=== PATIENT | female | born 1990 | race Caucasian/White ===

== ENCOUNTER 2019-09-22 12:04 | Outpatient (CLI) | payer OTHER, SELFPAY ==
--- NOTE | ~2019-09-22 | XR_ITS ---
EXAMINATION: XR lumbar spine 2-3V EXAM DATE: 09/22/2019 12:38 INDICATION: Cervicalgia, low back pain. TECHNIQUE: Lumber spine frontal, lateral, lateral L5-S1 projections for interpretation. There is no prior study for comparison. FINDINGS: 6 lumbar vertebral bodies. The vertebral bodies are aligned in the AP dimension. Neck desiree ntained there is mild lower lumbar facet arthropathy. The spondylolysis. Sacrum, sacroiliac joints, s acral arcuate lines are intact. Paraspinal soft tissue is unremarkable. IMPRESSION: Mild lumbar spondylosis. Reviewed, dictated and finalized at location A. IMPRESSION: Mild lumbar spondylosis.
--- NOTE | ~2019-09-22 | XR_ITS ---
EXAMINATION: XR_CERV2-3V_CR EXAM DATE: 09/22/2019 12:38 INDICATION: Cervical pain. TECHNIQUE: Cervical spine frontal, lateral, lateral swimmers, and open-mouth odontoid projections. C omparison is made to prior examination from 03/31/2016. FINDINGS: There is no evidence of acute cervical fracture. The odontoid process is intact. Pre-dens space is normal. Prevertebral soft tissue is normal. There are no soft tissue abnormalities identi fied. The vertebral bodies are aligned. Vertebral body and disc heights are well-maintained. Th ere is mild cervical facet arthropathy. No appreciable neural foraminal stenosis. Lung apices unremar kable. Small C7 cervical ribs, congenital variant. IMPRESSION: 1. Mild cervical facet arthropathy. 2. Small C7 ribs. Reviewed, dictated and finalized at location A.
[2019-09-22 13:19] LABS: Basophils Percent Auto 0.6 % (0.2-1.2); Eosinophils Absolute Auto 0.3 K/mm3 (0-0.3); Eosinophils Percent Auto 5.5 % (0-4.4); Hematocrit 40.5 % (37.0-47.0); Hemoglobin 13.9 g/dL (12.0-15.0); Immature Granulocyte Absolute 0.01 K/mm3 (0.00-0.031); Immature Granulocyte Percent A 0.2 % (0-0.5); Lymphocytes Absolute Auto 1.24 K/mm3 (0.9-3.2); Lymphocytes Percent Auto 25.1 % (18.3-44.2); Mean Corpuscular HGB Conc 34.3 g/dl (32-36); Mean Corpuscular Hemoglobin 31.4 pg (26-34); Mean Corpuscular Volume 91.6 fl (80-100); Mean Platelet Volume 10.9 fl (7.4-10.4); Monocytes Absolute Auto 0.4 K/mm3 (0.1-0.6); Monocytes Percent Auto 8.9 % (2.6-8.5); Neutrophils Percent Auto 59.7 % (45.5-73.1); Platelet Count Result 245 k/mm3 (150-375); Red Blood Count 4.42 M/mm3 (4.2-5.4); Red Cell Distribution Width 12.4 % (11.5-14.5); White Blood Count 4.9 K/mm3 (4.5-10.0)
[2019-09-22 13:29] LABS: Alanine Aminotransferase 11 U/L (4-35); Albumin Level 4.3 g/dL (3.5-5.1); Alkaline Phosphatase 67 U/L (38-126); Aspartate Amino Transferase 20 U/L (14-36); Bilirubin,Total 0.7 mg/dL (0.2-1.3); Blood Urea Nitrogen 11 mg/dL (7-17); Carbon Dioxide 23 mmol/L (22-30); Chloride 106 mmol/L (98-107); Estimated Glomerular Filt Rate > 60; Glucose 92 mg/dL (65-105); Potassium 3.9 mmol/L (3.4-5.0); Sodium 137 mmol/L (137-145)
[2019-09-22 14:19] LABS: Free T4 Free Thyroxine 1.07 ng/mL (0.78-2.19)
[2019-09-22 14:34] LABS: Folic Acid 14.8 ng/mL (2.76->20)
[2019-09-25 02:30] LABS: Albumin 3.8 g/dL (3.8-4.8); Alpha 1 Globulin 0.2 g/dL (0.2-0.3); Alpha 2 Globulin 0.6 g/dL (0.5-0.9); Beta 1 Globulin 0.4 g/dL (0.4-0.6); Protein, Total 6.2 g/dL (6.1-8.1)
[2019-09-25 13:30] LABS: Vitamin D 1,25 (OH)2 Total 52 pg/mL (18-72); Vitamin D2 1,25 (OH)2 8 pg/mL; Vitamin D3 1,25 (OH)2 44 pg/mL
== END 2019-09-22 12:05 | disposition home or self-care (01) ==
PROVIDERS: PCP Physician Assistant; Visit Provider Psychiatry & Neurology Neurology
DX: M54.2 Cervicalgia (principal); M47.896 Other spondylosis, lumbar region
CPT/HCPCS: 36415; 72040; 72100; 80053; 82607; 82652; 82746; 84155; 84165; 84439; 84443; 85025; 86038

== ENCOUNTER 2019-11-04 10:22 | Outpatient (CLI) | payer OTHER, SELFPAY ==
--- NOTE | 2019-11-04 11:30 | NEURO_ITS ---
Patient Number: [id number] Impression: # Complains of numbness of right upper extremity and at times right lower extremity. # Normal nerve conduction study except evolving left Carpal Tunnel Syndrome. # Normal needle/EMG exam. # Clinical correlation recommended. Nerve Conduction Studies Anti Sensory Summary Table Stim Site NR Peak (ms) P-T Amp (?V) Site1 Site2 Delta-P (ms) Dist (cm) Abdelrahman (m/s) Left Median Anti Sensory (2-3nd Digit) Wrist 2.6 92.8 Wrist 2-3nd Digit 2.6 14.0 54 Wrist 2.7 95.1 Wrist 2-3nd Digit 2.6 14.0 54 Right Median Anti Sensory (2-3nd Digit) Wrist 2.6 92.9 Wrist 2-3nd Digit 2.6 14.0 54 Wrist 2.6 83.6 Wrist 2-3nd Digit 2.6 14.0 54 Left Radial Anti Sensory (Base 1st Digit) Wrist 2.2 23.7 Wrist Base 1st Digit 2.2 0.0 Right Radial Anti Sensory (Base 1st Digit) Wrist 2.4 11.6 Wrist Base 1st Digit 2.4 0.0 Left Sup Fibular Anti Sensory (Ant Lat Mall) 14 cm 3.6 11.5 14 cm Ant Lat Mall 3.6 16.0 44 Right Sup Fibular Anti Sensory (Ant Lat Mall) 14 cm 3.3 9.4 14 cm Ant Lat Mall 3.3 16.0 48 Left Sural Anti Sensory (Lat Mall) Calf 3.8 20.8 Calf Lat Mall 3.8 16.0 42 Right Sural Anti Sensory (Lat Mall) Calf 3.9 18.0 Calf Lat Mall 3.9 16.0 41 Left Ulnar Anti Sensory (5th Digit) Wrist 2.4 76.3 Wrist 5th Digit 2.4 14.0 58 Right Ulnar Anti Sensory (5th Digit) Wrist 2.2 82.2 Wrist 5th Digit 2.2 14.0 64 Motor Summary Table Stim Site NR Onset (ms) O-P Amp (mV) Site1 Site2 Delta-0 (ms) Dist (cm) Abdelrahman (m/s) Left Median Motor (Abd Poll Brev) Wrist 3.8 3.2 Elbow Wrist 4.6 27.0 59 Elbow 8.4 5.0 Right Median Motor (Abd Poll Brev) Wrist 3.5 2.6 Elbow Wrist 4.5 26.0 58 Elbow 8.0 2.6 Left Peroneal Motor (Vastus Med) Ankle 4.8 2.1 Popit Ankle 8.2 39.0 48 Popit 13.0 3.0 Right Peroneal Motor (Vastus Med) Ankle 4.9 3.3 Popit Ankle 7.7 37.0 48 Popit 12.6 4.1 Left Tibial Motor (Abd Croft Brev) Ankle 4.8 8.3 Knee Ankle 8.6 40.0 47 Knee 13.4 6.5 Right Tibial Motor (Abd Croft Brev) Ankle 5.0 11.5 Knee Ankle 8.5 42.0 49 Knee 13.5 12.3 Left Ulnar Motor (Abd Dig Minimi) Wrist 2.5 6.7 A Elbow Wrist 4.8 28.0 58 A Elbow 7.3 5.5 Right Ulnar Motor (Abd Dig Minimi) Wrist 2.9 6.2 A Elbow Wrist 4.4 26.0 59 A Elbow 7.3 5.5 F Wave Studies NR F-Lat (ms) L-R F-Lat (ms) Left Median (Mrkrs) (Abd Poll Brev) 26.41 0.08 Right Median (Mrkrs) (Abd Poll Brev) 26.49 0.08 Left Peroneal (Mrkrs) (EDB) 48.56 0.04 Right Peroneal (Mrkrs) (EDB) 48.59 0.04 Left Tibial (Mrkrs) (Abd Hallucis) 48.34 0.52 Right Tibial (Mrkrs) (Abd Hallucis) 48.86 0.52 Left Ulnar (Mrkrs) (Abd Dig Min) 26.64 0.00 Right Ulnar (Mrkrs) (Abd Dig Min) 26.64 0.00 EMG Side Muscle Nerve Root Ins Act Fibs Amp Dur Recrt Comment Right 1stDorInt Ulnar C8-T1 Nml Nml Nml Nml Nml Right Ext Indicis Radial (Post Int) C7-8 Nml Nml Nml Nml Nml Right Ext Digitorum Radial (Post Int) C7-8 Nml Nml Nml Nml Nml Right BrachioRad Radial C5-6 Nml Nml Nml Nml Nml Right PronatorTeres Median C6-7 Nml Nml Nml Nml Nml Right Abd Poll Brev Median C8-T1 Nml Nml Nml Nml Nml Right AntTibialis Dp Br Fi
== END 2019-11-04 10:23 | disposition home or self-care (01) ==
LOC: ANHNEURO 10:25
PROVIDERS: PCP Physician Assistant; Visit Provider Psychiatry & Neurology Neurology
DX: R20.2 Paresthesia of skin (principal)
CPT/HCPCS: 95886; 95913

== ENCOUNTER 2019-11-12 07:47 | Outpatient (CLI) | payer OTHER, SELFPAY ==
--- NOTE | ~2019-11-12 | CT_ITS ---
EXAMINATION: CT cervical spine w con EXAM DATE: 11/12/2019 08:33 INDICATION: Pain and numbness down right arm. Swelling, marked site posteriorly. TECHNIQUE: Spiral CT of the cervical spine was performed following injection 100 mL Omnipaque 350 german ution intravenously. Axial images were reviewed. Coronal and sagittal reformatted images were also reviewed. The dose-length product (DLP) for this examination was 142.45 mGy-cm. The exposure was vinny lored according to patient size (auto mA exposure control), and iterative reconstruction (ASIR) was u sed as additional dose reduction technique. There is no prior study for comparison. FINDINGS: There is an externally placed marker right posterolateral aspect of the neck at the C2 leve l. There is no underlying soft tissue mass or other abnormality identified deep to this. C2 does have a bifurcated spinous process with the right spinous aspect projecting slightly further out than the left. Unremarkable paraspinal musculature. The vertebral bodies are aligned in the AP dimension. Vert ebral body and disc heights are well-maintained. There are no osteoblastic or osteolytic lesions iden tified. There are no areas of abnormal enhancement on the post contrast images. Lung apices unremarka ble. Level by level evaluation: There is no more than mild cervical facet arthropathy. The uncovertebral j oints are unremarkable. No neural foraminal stenosis or central canal stenosis suspected. IMPRESSION: Unremarkable CT neck examination. Reviewed, dictated and finalized at location A.
== END 2019-11-12 07:48 | disposition home or self-care (01) ==
LOC: ANHIMG 07:51
PROVIDERS: PCP Physician Assistant; Visit Provider Psychiatry & Neurology Neurology
DX: R22.1 Localized swelling, mass and lump, neck (principal)
CPT/HCPCS: 72126; Q9967

== ENCOUNTER 2020-05-02 14:15 | Outpatient (RCR) | payer OTHER, SELFPAY ==
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
--- NOTE | 2020-04-20 13:13 | PCPTNOTE ---
Patient did not show up for scheduled appointment this date; when called patient stated didn't realized she had an appointment this date was currently at another MD appointment for A-fib.
--- NOTE | 2020-04-25 12:50 | PCPTNOTE ---
Patient did not show up for scheduled appointment this date. Called pt, she states she forgot she had an appt today. She has been rescheduled for next Saturday.
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
== END 2020-05-03 11:33 | disposition home or self-care (01) ==
LOC: ANHPT 14:15
DX: G54.0 Brachial plexus disorders (principal)
CPT/HCPCS: 97014; 97110; 97140; 97163; G0283

== ENCOUNTER 2020-10-05 14:30 | Outpatient (RCR) | payer OTHER, SELFPAY ==
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
[2020-08-03 10:40] VITALS: BP_SYST 170
--- NOTE | 2020-08-03 11:57 | PTOPEVAL ---
Thank you for referring Sallie Tabor to [facility].? See summary below for Sallie's progress. The patient is scheduled to be seen for therapy? 2 x/week for 5 weeks. Please review, sign, date and return this plan of care WAQAR. I agree with and certify that the following plan of care is medically necessary. Referring Physician Date Referring Provider: Dr. Lv Abreu Physical Therapy Progress Note Diagnosis s/p thoracic outlet Onset 06-14-20 Subjective Information She continues to have right Query Text:As Reported By Patient/ elbow pain with decreased Family ability to place pressure due to nerve pain. She c/o tightness of right UQ region. Improved ability to breath with less spasms. C/o UE fatigue with ADL's. She is able to sav 30 sec of activities with right UE. She plans on decreasing her pain medication. She is performing HEP 1x/day. She has started a walking program yesterday. Pain Assessment Self Report Pain Assessment Right Shoulder(s) Reported Pain Level 6 Pain Description Aching,Incisional,Numbness, Radiating,Tightness Pain Radiation Right Arm Pain Frequency Chronic,Continuous Lowest Pain Intensity 6 Greatest Pain Intensity 9 Pain Aggravating Factors ADL's,Exercise/Activity, Prolonged Position,Walking, Weight Bearing/Standing Pain Behaviors Anxious Pain Score Cervical and Lumbar ROM Cervical ROM Cervical Flexion (0-60) 50 Cervical Extension (0-70) 70 Cervical Lateral Flexion Right (0-50) 22 Cervical Lateral Flexion Left (0-50) 12 Cervical Rotation Right (0-90) 45 Cervical rotation left:s 52 Cervical ROM Comments pain with all motions Upper Extremity Range of Motion Scapular/ Shoulder Range of Motion Right Shoulder Flexion - Active 115 Shoulder Flexion - Passive 140 Shoulder Extension - Active 38 Shoulder Abduction - Active 70 Shoulder Abduction - Passive 170 Shoulder Medial Rotation - Active 55 Shoulder Medial Rotation - Passive 70 Shoulder Medial Rotation - Active lateral glut region Query Text:Reach Behind the Back Shoulder Lateral Rotation - Active 65 Shoulder Lateral Rotation - Passive 80 Shoulder Lateral Rotation - Active back of head Query Text:Reach Behind the Head Scapular/Shoulder Range of Motion
--- NOTE | 2020-08-15 13:19 | PCPTNOTE ---
Patient called & cancelled scheduled appointment this date due to not having a ride.
--- NOTE | 2020-08-25 10:42 | PCPTNOTE ---
Patient called & cancelled scheduled appointment this date due to pain and swelling of UE and chest region. Will call pt due to repeated cancelled visits.
[2020-09-05 11:05] VITALS: BP_SYST 165
--- NOTE | 2020-09-05 13:27 | PTOPEVAL ---
Thank you for referring Sallie Tabor to [facility].?Sallie has attended 11 therapy visits to address UE limitations related to her TOS decompression surgery. She is progressing slowly towards her therapy goals and improved UE function. She requires additional skilled therapy services 1x/week for 6 weeks. Please review, sign, date and return this plan of care WAQAR. I agree with and certify that the following plan of care is medically necessary. Referring Physician Date Attending Provider: Dr. Lv Abreu Physical Therapy progress note Diagnosis s/p thoracic outlet surgery- removed 1st rib & R cervical rib& scalene muscles Onset 06-14-20 Subjective Information She is able to sav 5-10 Query Text:As Reported By Patient/ minutes than she has to stop Family due to pain and swelling. She drove today for the 1st time with manually using left UE. She is able to turn her head better with driving. Cont to c/o right elbow pain with pain with any pressure on the nerve. She has increased symptoms and pain with use of the phone for 15 minutes. She is able to complete a load of laundry if she paces her activities. She tries to perform her HEP 1x/day. She has trouble doing her exercises due to pain. She expresses frustration with finding work that she will be able to perform and tolerate Pain Assessment Self Report Pain Assessment Right Shoulder(s) Reported Pain Level 9 Pain Description Aching,Cramping,Incisional, Numbness,Radiating,Stabbing, Tightness Pain Frequency Chronic,Continuous Lowest Pain Intensity 7 Greatest Pain Intensity 10 Pain Aggravating Factors ADL's,Exercise/Activity, Lifting,Prolonged Position, Walking,Weight Bearing/ Standing Pain Behaviors Anxious,Restless Cervical and Lumbar ROM Cervical ROM Cervical Lateral Flexion Right (0-50) 30 Cervical Lateral Flexion Left (0-50) 22 Cervical Rotation Right (0-90) 52 Cervical Rotation Left (0-90) 54 Cervical ROM Comments pain with left lateral flex Upper Extremity Range of Motion Scapular/ Shoulder Range of Motion Right Shoulde
--- NOTE | 2020-10-11 09:58 | PCPTNOTE ---
This treatment is being continued on visit number 15 to [id number]. Please see documentation on both accounts to view progress. Completed interventions, outcomes, and problems have been marked as Inactive to facilitate the copying of the Care plan routine for recurring accounts.
== END 2020-10-07 10:59 | disposition home or self-care (01) ==
LOC: ANHPT 14:30
DX: G54.0 Brachial plexus disorders (principal)
CPT/HCPCS: 97014; 97110; 97140; 97161; G0283

== ENCOUNTER 2020-11-29 13:30 | Outpatient (RCR) | payer OTHER, SELFPAY ==
[2020-10-07 11:00] VITALS: BP_SYST 165
--- NOTE | 2020-10-11 09:52 | PCPTNOTE ---
The treatment documented on this account is a continuation of the treatment documented on visit number 15 to [id number]. Please see documentation on both accounts to view progress. The Plan of Care has been transitioned and updated within the new V#. I have addressed and agree with the discipline specific Problems, Interventions, and Goals for the current certification period. Completed interventions, outcomes, and problems have been marked as Inactive to facilitate the copying of the Care plan routine for recurring accounts.
--- NOTE | 2020-10-12 15:11 | PCPTNOTE ---
Patient called & cancelled scheduled appointment this date due to medication affecting ability to drive.
[2020-10-19 14:57] VITALS: BP_SYST 180
--- NOTE | 2020-10-20 11:54 | PTOPEVAL ---
Thank you for referring Sallie Tabor to [facility].?She is progressing slowing towards therapy goals. See update summary below for progress and additional recommendations. The patient is scheduled to be seen for therapy? 1 x/week for 5 weeks. Please review, sign, date and return this plan of care WAQAR. I agree with and certify that the following plan of care is medically necessary. Referring Physician Date Attending Provider: Dr. Lv Abreu Physical Therapy Progress Note Problem Diagnosis s/p thoracic outlet surgery- removed 1st rib & R cervical rib&2/3scalene mus Onset 06-14-20 Additional Evaluation Detail As therapy the tightness of the ant GH/chest region is better, the scars are looser. She has improve ability to cook and eat. Reports improved right shoulder position. 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 She is Family performing cleaning for a few hours before resting. She is able to carry objects with right UE. She is driving to [place], but causes increased pain. She spoke with her heart doctor regarding her BP issues, , but did not get any good answers. But changing medication. She cont to have issues with breathing with back spasms when trying to take deep breaths. She has hired an business attorney to file for disability. She is receiving massages. Reports no changes in the right elbow pain or pressure. She is able to use the computer for 50-10 minutes. She does not have an ergonomic set-up. She is able to perform 10 reps of her exercises. She is trying to be outside and walking more. Pain Assessment Self Report Pain Assessment Right Arm(s) Reported Pain Level 6 Pain Description Burning,Numbness,Radiating, Tingling Pain Frequency Chronic,Continuous
--- NOTE | 2020-11-22 13:53 | PCPTNOTE ---
Patient called & cancelled scheduled appointment this date due to waking up with drainage didn't want to risk anything due to covid.
[2020-11-29 13:35] VITALS: BP_SYST 180
--- NOTE | 2020-11-29 14:34 | PTOPEVAL ---
Physical Therapy Discharge Note Thank you for referring Sallie Tabor to [facility].? She has attended 20 therapy visits to address UE impairments following her NTOS surgery. She has achieved maximal potential with skilled therapy services for shoulder range, pain, and UE strength. She has been provided a home exercise program to maintain her level of function. See summary below for current level of function. Will DC skilled therapy services at this time. Please review, sign, date and return this discharge summary WAQAR. I agree with and certify that the following plan of care is medically necessary. Referring Physician Date Referring Provider: Dr. 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 She is taking pain medication and muscle relaxers. She is able to carry objects with right elbow pain and scapular pain. As therapy the tightness of the ant GH/ chest region is better, but cont tightness of scapular region. She has increased pain with sitting and use of computer. She is unable to find a comfortable position without increasing her symptoms. She has not returned for any additional massages. She is performing her HEP every other day. Pain Assessment Right Arm(s) Reported Pain Level 8 Pain Description Tightness Pain Frequency Chronic,Continuous Lowest Pain Intensity 5 Greatest Pain Intensity 9 Upper Extremity Range of Motion Scapular/ Shoulder Range of Motion Right Shoulder Flexion - Active 160 Shoulder Flexion - Passive 180 Shoulder Extension - Active 40 Shoulder Abduction - Active 140 Shoulder Abduction - Passive 180 Shoulder Medial Rotation - Active 65 Shoulder Lateral Rotation - Active 85 Scapular/Shoulder Range of Motion Muscle Weakness,Pain,Soft Limitations Tissue Restriction Upper Extremity Muscle Strength Testing Scapular/Shoulder Right Scapular Retraction - Middle Trapezius 2+ Poor + Scapular Retraction - Lower Trapezius 2 Poor Shoulder Flexion Strength 3 Fair Shoulder Extension Strength 4- Good - Shoulder Ab
== END 2020-11-30 14:41 | disposition home or self-care (01) ==
LOC: ANHPT 13:30
DX: G54.0 Brachial plexus disorders (principal)
CPT/HCPCS: 97110; 97530

== ENCOUNTER 2021-05-16 09:02 | Outpatient (RCR) | payer OTHER, SELFPAY ==
--- NOTE | 2021-05-16 11:47 | PTOPEVAL ---
Thank you for referring Sallie Tabor to [facility].? The patient is scheduled to be seen for therapy? 1 x/week for 10 weeks. Please review, sign, date and return this plan of care WAQAR. I agree with and certify that the following plan of care is medically necessary. Referring Physician Date Attending Provider: Steven Colmenares, MD Diagnosis back pain, chronic pain Onset L2 pars defect Additional Evaluation Detail She has received extensive therapy due to her TOS impairments. She is not preforming her HEP for her TOS symptoms. Subjective Information She c/o increased pain in the Query Text:As Reported By Patient/ back especially in the morning. Family She feels the impairment is related to work relate injuries from lifting too much. She was working in 2019, but couldn't stand for long period due to pain. She cont to report limitations with standing for IADL's, sitting on hard surfaces, lifting or carrying task. States the pain will jump around her full back when the pain increases. Previous Treatments Previous Treatments For This Problem TOS- 5 months ago Pain Assessment Lower Back Reported Pain Level 5 Pain Description Aching,Sharp,Tender on Palpation Pain Frequency Chronic,Continuous Lowest Pain Intensity 5 Greatest Pain Intensity 9 Pain Aggravating Factors ADL's,Exercise/Activity, Lifting,Prolonged Position, Sitting,Weight Bearing/ Standing Pain Behaviors Anxious Cervical and Lumbar ROM Lumbar ROM Lumbar Flexion Active Ankle:Hands to: Lumbar Extension (0-40) 10*Active in Degrees Lateral Flexion mid thigh region:Active Hands to: Lumbar Comments pain with all motions Cervical and Lumbar Muscle Testing Lumbar Strength Upper Abdominal Strength 3 Fair Lower Abdominal Strength 3-Fair- Upper Back Extension 3-Fair- Lower Back Extension 3-Fair- Lower Extremity Muscle Strength Testing Hip Strength Right Hip Flexion Strength 3+ Fair + Hip Extension Strength 3- Fair - Hip Abduction Strength 3 Fair Left Hip Fl
--- NOTE | 2021-05-30 10:57 | PCPTNOTE ---
Admitting Provider: Attending Provider: Steven ColmenaresMD Patient:Sallie Tabor Date of :1990 Physical Therapy Discharge Note Patient called to cancel her remaining scheduled visits after her initial visit. Goals have been not met due to she was seen for her initial visit only. Will DC Sallie from skilled therapy services at this time. Thank you for referring this patient to [facility]. Please review, sign, date and return this discharge summary WAQAR. I have been updated about the patient's current status and I agree with discharge from the above service at this time. Referring Physician Date
== END 2021-05-31 08:37 | disposition home or self-care (01) ==
LOC: ANHPT 09:02
PROVIDERS: Visit Provider Hospitalist
DX: G89.4 Chronic pain syndrome (principal)
CPT/HCPCS: 97110; 97163

== ENCOUNTER 2023-07-18 11:39 | Emergency (ER) | payer MEDICARE, MEDICAID, SELFPAY ==
--- NOTE | ~2023-07-18 | CT_ITS ---
EXAMINATION: CT cervical spine wo con DATE: 07/18/2023 14:28 INDICATION: Neck pain after fall TECHNIQUE: Computed tomography (CT) of the cervical spine was performed without intravenous contrast. The dose-length product was 133 mGy-cm. Automated exposure control and iterative reconstruction tech [employer] were employed. COMPARISON: CT dated 11/12/2019 FINDINGS: Vertebral body heights are maintained. Craniovertebral junction is normal. Odontoid process within normal limits. No significant disc narrowing. Normal cervical alignment. Lung apices are norm al. No paraspinal soft tissue abnormalities. No evidence for perched facet. Thyroid gland is unremark able. IMPRESSION: 1. No acute abnormality of the cervical spine. Reviewed, dictated and finalized at location L.
--- NOTE | ~2023-07-18 | CT_ITS ---
EXAMINATION: CT brain wo con INDICATION: Head injury COMPARISON: 03/31/2016 TECHNIQUE: Standard unenhanced head CT. The dose-length product (DLP) was 605.33 mGy-cm. The mA was a djusted according to patient size. Iterative reconstruction technique was employed. FINDINGS: No intracranial hemorrhage, acute infarction, or abnormal mass lesion. The ventricles are n ormal. No abnormal mass effect or midline shift. The michele-white matter differentiation is normal. The basal cisterns are patent. The orbits are normal. The paranasal sinuses, mastoids and calvarium are normal. IMPRESSION: 1. No acute intracranial abnormality. Reviewed, dictated and finalized at location F.
[2023-07-18 11:41] VITALS: BP 130/90; PULSE 94; RESP 18; TEMP 36.6; O2SAT 100
--- NOTE | 2023-07-18 13:59 | ED.FALL ---
HPI - Fall General Chief Complaint: Fall <Lia Ledesma PA-C - Last Filed: 07/18/23 14:18> Stated Complaint: fall, head injury <Lia Ledesma PA-C - Last Filed: 07/18/23 14:18> Time Seen by Provider: 07/18/23 15:40 <Lia Ledesma PA-C - Last Filed: 07/18/23 14:18> Focused HPI: 32-year-old female with an extensive neurologic history, POTS, and recent diagnosis of lee robins presents to emergency department after mechanical fall that occurred last night. Patient states she has been having bowel incontinence for the past few weeks and neck pain for the past few weeks. She had an MRI performed by her PCP on 07/11/2023 with impression stating multilevel cervical degenerative disc and joint disease with disc bulging / spondylosis, central disc protrusion at C6 and C7, canal narrowing and foraminal narrowing. There is mild canal narrowing at C6 and C7. She is being followed for a lumbar MRI tomorrow for further evaluation. Patient states last night she got up because she felt an episode of incontinence occurring, tripped on a tile in the bathroom and hit her head on a shelf. She is unsure if she lost consciousness but states she did feel confused after the fall. She reports associated lightheadedness and nausea. Also states that she has chronic diminished sensation on the right side. She denies saddle anesthesia or urinary incontinence. She has been able to urinate today. She is not anticoagulated. GENERAL: Well-appearing, well-nourished, and in no acute distress. HEAD: Normocephalic, atraumatic. NECK: C-collar in place. Tenderness to the cervical spine without obvious step-offs or deformities Back: NO MIDLINE THORACOLUMBAR SPINOUS TENDERNESS, STEP-OFFS OR DEFORMITIES. CHEST: Clear to auscultation. ?No respiratory distress. HEART: Regular rate and rhythm.? NEURO: ?Alert and oriented x3. cranial nerves 2-12 intact. Strength 5/5 in BUE and BLE. Diminished sensation in the right face, right upper extremity and right lower extremity which is chronic per patient, however sensation intact. No saddle anesthesia. Patient screened in triage and initial orders placed.? ?Additional care and disposition to be based upon?diagnostic testing and treatment. <Lia Ledesma PA-C - Last Filed: 07/18/23 14:18> History of Present Illness HPI Narrative: 32-year-old female presenting to the emergency department for evaluation for head neck pain after having a ground level fall. Patient states that she has frequent syncopal episodes and is being worked up for this but is suspected to be secondary to her POTS. Patient states that she was walking to quickly to the bathroom and passed out causing her to strike her head on the vanity. Patient denies any other pain or injury from the incident today. <Estevan Nguyen MD - Last Filed: 07/18/23 20:32> Related Data Home Medications: Home Medications Medication Instructions Recorded Confirmed acetaminophen 300 mg-codeine 30 mg 1 tablet PO TID 04/20/19 07/18/23 tablet (Tylenol-Codeine #3) alprazolam 0.5 mg tablet 0.5 mg PO TID 04/20/19 07/18/23 norethindrone 1 mg-ethinyl 1 tablet PO DAILY 04/20/19 07/18/23 estradiol 20 mcg (21)-iron 75 mg (7) tablet (June FE 05/11 ()) omeprazole 20 mg tablet,delayed 20 mg PO DAILY 04/20/19 07/18/23 release ondansetron HCl 4 mg tablet 4 mg PO Q6H PRN Nausea 04/20/19 07/18/23 (Zofran) <Lia Ledesma PA-C - Last Filed: 07/18/23 14:18> Allergies/Adverse Reactions: Allergies Allergy/AdvReac Type Severity Reaction Status Date / Time pseudoephedrine AdvReac Jittery Verified 07/18/23 15:32 [From DayQuil Sinus Pressure/Pain] <Lia Ledesma PA-C - Last Filed: 07/18/23 14:18> Review of Systems Review of Systems: All systems reviewed & are unremarkable except as noted in HPI and below <Estevan Nguyen MD - Last Filed: 07/18/23 20:32> Exam Narrative: APPEARANCE: Well
[2023-07-18 15:41] VITALS: BP 144/103; PULSE 87; RESP 18; O2SAT 100
[2023-07-18] MEDS: PROCHLORPERAZINE MALEATE 5 MG TABLET 10 MG PO (16:40)
[2023-07-18] MEDS: HYDROcodone/acetaminophen (*CRX) 5-325 MG TABLET 1 TAB PO (16:40)
== END 2023-07-18 16:50 | disposition home or self-care (01) ==
PROVIDERS: Emergency Provider Emergency Medicine; PCP Hospitalist
DX: S09.90XA Unspecified injury of head, initial encounter (principal); G90.A Postural orthostatic tachycardia syndrome [POTS]; Q79.60 Ehlers-Danlos syndrome, unspecified; W18.09XA Striking against other object with subsequent fall, initial encounter
CPT/HCPCS: 70450; 72125; 99284; A9270